=== PATIENT | male | born 1985 | race Asian ===

== ENCOUNTER 2019-08-21 14:48 | Outpatient (CLI) | payer OTHER ==
--- NOTE | 2019-08-21 16:13 | MRI Report ---
PROCEDURE: Lumbar Spine W/O INDICATIONS: Low back pain with right greater than left lower extremity radicular symptoms. TECHNIQUE: Noncontrast sagittal T1 spin echo and T2 fast echo, sagittal STIR, axial T1 and T2 fast spin echo thr ough the lumbar spine. In cases with scoliosis, additional coronal T2 fast spin echo may be performe d. COMPARISON: None. FINDINGS: Image quality: Excellent. Alignment and Curvature: There is normal bony alignment. Bone Marrow: Marrow is of normal overall signal. No acute vertebral body compression fractures. Spinal Cord: Normal position and appearance of the conus. Visualized caudal component of the cord dem onstrates normal signal and size. Paraspinous Soft Tissues: No paravertebral masses. From T12-L1 through L4-L5, there is no spinal canal or neural foraminal stenosis. Mild disc desiccati on at L4-L5. At L5-S1, postsurgical changes of prior right hemilaminotomy for discectomy noted. There is disc steve ccation with disc height loss and vacuum disc phenomenon. Diffuse disc bulge combines with a superimp osed disc extrusion to flatten the ventral thecal sac, in addition to displacing the right greater th an left S1 nerve roots and both subarticular zones. There is suspected impingement upon the right S1 nerve roots. Foraminal components of the disc bulge combined with facet hypertrophy to produce mild b ilateral neural foraminal stenosis. IMPRESSION: Disc bulge and extrusion at L5-S1 producing mass effect upon the right greater than left S1 nerve elizabeth ts within both subarticular zones. Impingement is suspected on the right. Correlate for any correspon ding radicular symptoms. Reviewed by: Ang Thao MD on 08/21/2019 4:12 PM PDT Approved by: Ang Thao MD on 08/21/2019 4:12 PM PDT Station ID: [id number]
== END 2019-08-21 14:49 | disposition home or self-care (01) ==
LOC: DI 14:48
DX: M51.27 Other intervertebral disc displacement, lumbosacral region (principal)
CPT/HCPCS: 72148

== ENCOUNTER 2020-06-15 06:41 | Emergency (ER) | payer OTHER ==
[2020-06-15 07:03] VITALS: BP 130/80
--- NOTE | 2020-06-15 07:18 | ED Physician Documentation ---
PD HPI LOWER EXT INJURY - Stated complaint Stated Complaint: LT FOOT PX - Chief complaint Chief Complaint: Wound - History obtained from History obtained from: Patient - Additional information Additional information: 34-year-old man Presents with left foot pain gradual in onset since yesterday evening. Patient states that he does not know of any traumatic injury and was working on the [employer] yesterday and began to notice pain in his foot while walking home. He went to bed and then woke up this morning and was unable to bear weight. He took ibuprofen with significant relief of pain. Pain is aching, currently mild, nonradiating, worse with weightbearing, localized to the outer aspect of the dorsum of the foot, associated with swelling that he noticed this morning which has since resolved. denies fevers, prior injuries there, or prior foot infection. Review of Systems Constitutional: denies: Fever Skin: denies: Lesions Musculoskeletal: reports: Extremity pain PD PAST MEDICAL HISTORY - Past Medical History Past Medical History: Yes Respiratory: Sleep apnea - Past Surgical History Past Surgical History: Yes Ortho: Spine surgery - Present Medications Home Medications: Ambulatory Orders Medication Instructions Recorded Confirmed Ibuprofen [Motrin] 600 mg PO Q6H PRN 7 Days #28 tab 06/15/20 - Allergies Allergies/Adverse Reactions: Allergies Allergy/AdvReac Type Severity Reaction Status Date / Time No Known Drug Allergies Allergy Verified 06/15/20 07:03 - Social History Does the pt smoke?: Yes Smoking Status: Current every day smoker Does the pt drink ETOH?: Yes ETOH Use: Liquor Does the pt have substance abuse?: No - Immunizations Immunizations are current?: Yes - POLST Patient has POLST: No PD ED PE NORMAL - Vitals Vital signs reviewed: Yes - General General: Alert and oriented X 3, No acute distress, Well developed/nourished - HEENT HEENT: Atraumatic, PERRL, EOMI - Neck Neck: Supple, no meningeal sign - Derm Derm: Normal color, Warm and dry - Extremities Extremities: No deformity, Normal ROM s pain, Other (L 5th base of metatarsal ttp. no visible or palpable edema) - Neuro Neuro: Alert and oriented X 3, No motor deficit, No sensory deficit - Psych Psych: Normal mood, Normal affect Results - Vitals Vitals: Vital Signs - 24 hr 06/15/20 07:00 Temperature 36.4 C L Heart Rate 89 Respiratory 16 Rate Blood Pressure 130/80 O2 Saturation 97 Oxygen O2 Source Room air PD MEDICAL DECISION MAKING - ED course ED course: 34-year-old man presents with point tenderness the right fifth metatarsal without known traumatic injury. Will obtain x-ray to evaluate and give him a splint and crutches with Ortho follow-up in 1 week if he does not have improvement. X ray nonfocal. It is possible this is the early beginnings of a gout flare, so we will provide NSAIDs and have him follow up with [facility]. Departure - Departure Disposition: 01 Home, Self Care Clinical Impression: Foot pain Condition: Good Instructions: ED RICE Follow-Up: Christian Gant MD [Provider Admit Priv/Credential] - Prescriptions: Ibuprofen [Motrin] 600 mg PO Q6H PRN 7 Days #28 tab PRN Reason: Pain Comments: You were seen in the emergency department for foot pain. Your x-ray did not show a break in the bone, but you should wear the soft boot and crutches provided and follow-up with orthopedics in 1 week if you do not have resolution of symptoms. It is possible this is the early beginnings of a gout flare, so please follow up with [facility] as well. Return the emergency department if you experience any new or worsening symptoms or have other concerns.
--- NOTE | 2020-06-15 07:51 | XRAY Report ---
PROCEDURE: Foot 3 View LT INDICATIONS: 5th metatarsal pain, tender to palpation, swelling TECHNIQUE: 3 views of the foot were acquired. COMPARISON: None FINDINGS: Bones: No fractures or dislocations. No suspicious bony lesions. Soft tissues: No tibiotalar joint effusion. Achilles tendon appears normal. IMPRESSION: No evidence acute bony abnormality of the left foot. Reviewed by: Siva Pagan MD on 06/15/2020 7:50 AM PDT Approved by: Siva Pagan MD on 06/15/2020 7:50 AM PDT Station ID: [id number]
== END 2020-06-15 07:50 | disposition home or self-care (01) ==
LOC: ED 06:41
DX: M79.672 Pain in left foot (principal); F17.200 Nicotine dependence, unspecified, uncomplicated
CPT/HCPCS: 99283; 99284

== ENCOUNTER 2023-01-11 09:56 | Day surgery (SDC) | payer OTHER ==
[~2023-01-11 09:56] MED LIST: LIDOCAINE-MPF 1% 30 ML VIAL ONE
[2023-01-11] MEDS ORDERED: LACTATED RINGERS 1,000 ML IV ONE ×2 (10:04→11:30)
[2023-01-11] MEDS ORDERED: PROPOFOL 500 MG/50 ML 500 MG/50 ML VIAL ONE (10:52)
[2023-01-11] MEDS ORDERED: MIDAZOLAM 2 MG/2 ML VIAL ONE (10:53)
[2023-01-11] MEDS ORDERED: GLYCOPYRROLATE 1 MG/5 ML VIAL ONE (10:54)
[2023-01-11] MEDS ORDERED: fentaNYL 100 MCG/2 ML VIAL ONE (10:54)
--- NOTE | 2023-01-11 11:08 | ANESTHESIA ---
Pre-Anesthesia VS, & Labs - Diagnosis desires sterilization - Procedure b/l vasectomy Height: 5 ft 10 in Weight (kg): 102.1 kg Body Mass Index: 32.3 BMI Classification: Obese - NPO >8 hours - Lab Results Lab results reviewed: Yes Home Medications and Allergies Home Medications: Ambulatory Orders Lisinopril [Zestril] 10 mg PO DAILY 01/04/23 Lisinopril [Zestril] 10 mg PO DAILY 01/04/23 Allergies/Adverse Reactions: Allergies Allergy/AdvReac Type Severity Reaction Status Date / Time No Known Drug Allergies Allergy Verified 06/15/20 07:03 Anes History & Medical History - Anesthetic History Anesthesia Complications: reports: No previous complications Family history of Anesthesia Complications: Denies Family history of Malignant Hyperthermia: Denies - Medical History Cardiovascular: reports: Hypertension Pulmonary: reports: Sleep apnea, CPAP use Gastrointestinal: reports: None Urinary: reports: None Neuro: reports: None Musculoskeletal: reports: Chronic back pain Endocrine/Autoimmune: reports: None Skin: reports: None Smoking Status: Current every day smoker Psychosocial: reports: Alcohol - Surgical History Orthopedic: reports: Spine surgery Exam General: Alert, Oriented x3, Cooperative Dental: WNL Mouth Openin Fingerbreadth Neck Mobility: Normal Mallampati classification: II Thyromental Distance: 4-6 cm Respiratory: Lungs clear Cardiovascular: Regular rate Plan Anesthesia Type: Total IV Consent for Procedure(s) Verified and Reviewed: Yes Code Status: Attempt Resuscitation ASA classification: 2-Mild systemic disease Is this case an emergency?: No
[2023-01-11] MEDS ORDERED: NALOXONE 0.4 MG/ML VIAL IVP PRN (11:09)
[2023-01-11] MEDS ORDERED: ATROPINE ABBOJECT 1 MG/10 ML SYRINGE IVP PRN (11:09)
[2023-01-11] MEDS ORDERED: HYDROmorphone 0.5 MG/0.5 ML SYRINGE IVP PRN (11:09)
[2023-01-11] MEDS ORDERED: ONDANSETRON 4 MG/2 ML VIAL IVP PRN (11:09)
[2023-01-11] MEDS ORDERED: fentaNYL 100 MCG/2 ML VIAL IVP PRN (11:09)
[2023-01-11] MEDS ORDERED: ePHEDrine 50 MG/ML VIAL IVP PRN (11:09)
[2023-01-11] MEDS ORDERED: LIDOCAINE 1% 50 ML MDV SUBQ ONE ×2 (11:12)
--- NOTE | 2023-01-11 11:43 | Discharge Plan ---
Discharge Plan Problem Reviewed?: Yes Disposition: Home, Self Care Diet: Regular Activity Restrictions: Additional Comments (as per instructions) Instruction Topics: Vasectomy No Scalpel No Smoking: If you smoke, Please STOP! Call for help.
--- NOTE | 2023-01-11 11:47 | OPERATIVE REPORT ---
Operative Report - General Procedure Date: 01/11/23 Planned Procedure: Bilateral Vasectomy Pre-Op Diagnosis: Elective Sterilization Procedure Performed: Bilateral Vasectomy Post Op Diagnosis: Elective Sterilization - Procedure Note Primary Surgeon: Emigdio Anesthesia Provider: JOSE J Tim Findings: Normal Vasectomy Complications: None - Other Other Information/Narrative: After informed consent was obtained the patient was brought to the OR and laid in the supine position. At that point the patient was anesthetized per anesthesia protocols and prepped and draped in the usual sterile fashion. A formal timeout was performed reconfirming the patient, procedure and laterality. His vas deferens was identified on the right side and some 1% lidocaine was used as local to instill on the right lateral wall. Using a sharp mosquito this was dissected down to the vas deferens which was grasped with a ring clamp. The vas was then gently from its sheath. It was clamped on both ends. An intervening segment was cauterized away. The ends were cauterized. Each end was suture ligated with 3-0 chromic suture. One end was then drop back in and a fascial interposition stitch was placed with 3-0 chromic suture. There was excellent hemostasis. The other end was dropped back into the cavity. 3-0 chromic suture was used to close the skin. An identical procedure was performed on the left side. Band-Aids were placed. This concluded the procedure. Patient tolerated the procedure well was brought to the PACU without further incident. All counts were correct
[2023-01-11] MEDS ORDERED: LACTATED RINGERS 1,000 ML IV SCH (12:00)
[2023-01-11 12:13] VITALS: BP 132/79; O2SAT 99
--- NOTE | 2023-01-11 12:15 | ANESTHESIA POST OP EVALUATION ---
Anesthesia Post Eval - Post Anesthesia Eval Vitals: Last Vital Signs Temp 36.6 C 01/11/23 12:00 Pulse 78 01/11/23 12:00 Resp 16 01/11/23 12:00 BP 132/79 H 01/11/23 12:00 Pulse Ox 99 01/11/23 12:00 O2 Flow Rate CV Function Including HR & BP: Stable Pain Control: Satisfactory Nausea & Vomiting: Negative Mental Status: Baseline Respiratory Status: Airway Patent Hydration Status: Satisfactory Anesthesia Complications: None
== END 2023-01-11 09:57 | disposition home or self-care (01) ==
LOC: OR 09:56
PROVIDERS: ATTEND Urology
DX: Z30.2 Encounter for sterilization (principal); E66.9 Obesity, unspecified; Z68.32 Body mass index [BMI] 32.0-32.9, adult; F17.200 Nicotine dependence, unspecified, uncomplicated; I10 Essential (primary) hypertension; G47.30 Sleep apnea, unspecified